=== PATIENT | female | born 1995 | race Caucasian/White ===

== ENCOUNTER 2022-01-15 09:00 | Outpatient (RCR) | payer OTHER, SELFPAY ==
[2021-12-30 10:57] VITALS: BMI 27.4
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
--- NOTE | 2021-12-30 12:41 | PC.ADMIT ---
Verified patient medications with patient and patient's pharmacy. Reports taking Paxil as prescribed however stated she forgets to take occasionally.
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
--- NOTE | 2022-01-01 09:53 | PC.NURSE ---
clients case opened in treatment team
--- NOTE | 2022-01-01 12:28 | PC.NURSE ---
During the weekend planning group the client stated she feels overwhelmed because she doen't have any supports that will be available over the weekend . Due to her history of affect lability and impulsivity we discussed calling [facility] for support which she has done in the past. She agreed to do so and I called and put her on alert. I spoke with Ruchi at [facility] .
--- NOTE | 2022-01-01 13:58 | P.PNPSP_ITS ---
Subjective Subjective Date of Service: 01/01/22 Reason For Visit: depression,anxiety Medical Problems Affecting Mental Status: No Interim History: Reports continued increased anxiety. Poor appetite, sleep, feeling stressed, also some withdrawals after cessation of cannabis. Requests increase of hydroxyzine, possibly another medication to help with sleep and appetite/anxiety. Medication Compliance: Yes Side effects from medications: No Attending Groups: Yes Review of Systems Acute medical concerns: No Medical Review of Systems: unchanged Review of Systems Review of Systems Yes all other systems are reviewed and are negative Constitutional: Reports no additional constitutional complaints Comments: No weight loss, fever, chills, weakness or fatigue. Mental Status Exam Mental Status Exam Narrative: Alert and oriented, fully attentive during encounter. Patient Appearance: Appropriate Patient Orientation: Person, Place, Time and Situation Level of Consciousness: Appropriate Patient Behavior: Appropriate, Anxious and Good Eye Contact Mood Description: Anxious Affect Description: Anxious Patient Cognition Impaired: No Ability to Follow Directions: Good Speech Pattern: Clear, Appropriate and Coherent Memory Description: Intact Hallucinations: None Delusions: Not Present Thought Process: Intact Depressive Symptoms: Increased Anxiety, Difficulty Sleeping, Changes in Appetite, Loss of Int. in Activity, Unhappiness, Increased Fatigue and Thoughts of /Suicide Judgement: Fair Diagnostics Vital Signs (24Hr): BMI result Body Mass Index 27.4 Assessment & Plan Assessment & Plan (1) Bipolar disorder, current episode depressed, mild or moderate severity, unspecified: Status: Acute Code(s): F31.30 - Bipolar disorder, current episode depressed, mild or moderate severity, unspecified Assessment and Plan: Patient reports increased anxiety, poor sleep, poor appetite. Finding hydroxyzine somewhat helpful, request dose increase, as it is not quite strong enough. We also discussed adding another p.r.n. medication. Discussed both BuSpar and Seroquel in detail, including indications, risks both serious and common, benefits, alternatives to treatment. She was agreeable to trial low- dose Seroquel 25 mg b.i.d. p.r.n. at this time. (2) Cannabis dependence, uncomplicated: Status: Acute Code(s): F12.20 - Cannabis dependence, uncomplicated Assessment and Plan: Patient continues to remain abstinent from cannabis use. Reports that she believes this is contributing to her increased anxiety at this time, possibly some withdrawals/cravings. Plan 1. Continue with current [facility] plan of care. 2. Increase hydroxyzine dose to 25-50 mg q.i.d. p.r.n. for anxiety. 3. Add quetiapine 25 mg b.i.d. p.r.n. for anxiety. Patient educated on: diagnosis, medication risk/benefits, substance abuse and therapeutic strategies Informed Consent: understands Reason for contiued partial hosp. stay Substantial Risk for: harm to self, inability to function and rapid decompensation Certification I certify that partial hospital treatment is medically necessary due to the symptoms and problems resulting from the patient's mental illness and the failure to treat the patient at the partial hospital level of care would likely result in the patient requiring inpatient psychiatric care which could not be prevented at a less intensive level of care. I spent minutes with the patient and/or on the patient floor today, greater than?50% of which was spent counseling/coordinating care. Discharge Plan Discharge Attending provider: Salvador Quijano Medications: New clonidine HCl 0.1 mg tablet 0.1 mg PO DAILY PRN (Reason: anxiety) Qty: 7 0RF hydroxyzine pamoate 25 mg capsule 50 mg PO QID PRN (Reason: anxiety) Qty: 112 0RF Rx Instructions: Take 25mg - 50mg up to four times daily prn for anxiety quetiapine 25 mg tablet 25 mg PO BID PRN (Reason: anxiety) 7 Days Qty: 14 0RF Discontinued hydroxyzine pamoate 25 mg Capsule 25 mg PO QID PRN (Reason: Anxiety) Rx Instructions: Patient has not picked up prescription thus has not started. Last filled by pharmacy 12/25/21 for 5 day supply. No Action paroxetine HCl [Paxil] 30 mg Tablet 30 mg PO DAILY Telehealth Telehealth Location of provider rendering services: practice address Location of patient: address on file Patient Identification confirmed using: Name, : Yes Telehealth method: video Patient verbally consented to treatment: Yes Patient verbally consented to billing insurance company: Yes Patient informed of any privacy concerns related to visit: Yes Minutes spent on Phone/Video with Pt.: 15
--- NOTE | 2022-01-05 15:13 | PC.NURSE ---
The client called out this morning because she had to take her car in for repair
--- NOTE | 2022-01-06 13:43 | HO.PHPPROGNO ---
Subjective Subjective Date of Service: 01/06/22 Reason For Visit: depression,anxiety Medical Problems Affecting Mental Status: No Interim History: Reports ongoing anxiety, although finding quetiapine helpful. Passive SI, ?thoughts I want to disappear ?. Denies any intent or plan. States she needs a referral for in neuro psychiatry 2nd opinion, also for a therapist. Medication Compliance: Yes Side effects from medications: No Attending Groups: Yes Review of Systems Acute medical concerns: No Medical Review of Systems: unchanged Review of Systems Review of Systems Yes all other systems are reviewed and are negative Constitutional: Reports no additional constitutional complaints Mental Status Exam Mental Status Exam Narrative: NAD. Fully alert and oriented. circular movements with mouth, motor activity calm, posture within normal limits. Normal ambulation, no cogwheeling or rigidity noted. Patient Appearance: Appropriate Patient Orientation: Person, Place, Time and Situation Level of Consciousness: Appropriate Patient Behavior: Appropriate, Anxious and Good Eye Contact Mood Description: Anxious Affect Description: Anxious Patient Cognition Impaired: No Ability to Follow Directions: Good Speech Pattern: Clear, Appropriate and Coherent Memory Description: Intact Hallucinations: None Delusions: Not Present Thought Process: Intact Thought Content: positive for Suicidal Ideation (Passive, no intent or plan.) Depressive Symptoms: Increased Anxiety, Difficulty Sleeping, Changes in Appetite, Loss of Int. in Activity, Unhappiness, Increased Fatigue and Thoughts of /Suicide Abnormal Motor Activity Signs and Symptoms: Chorea (circular tongue/mouth movements) Judgement: Fair Diagnostics Vital Signs (24Hr): BMI result Body Mass Index 27.4 Assessment & Plan Assessment & Plan (1) Bipolar disorder, current episode depressed, mild or moderate severity, unspecified: Status: Acute Code(s): F31.30 - Bipolar disorder, current episode depressed, mild or moderate severity, unspecified Assessment and Plan: Reports ongoing anxiety, although finding quetiapine helpful. Passive SI, ?thoughts I want to disappear ?. Denies any intent or plan. No safety concern at this time. Patient displaying involuntary movement, circular tongue motion. She reports that this has been ongoing since childhood. She states that she get asks about this every time she has ever taken an atypical antipsychotic, and that it is not TD, but rather something that she has had since she was a child. She states that she has always moved her tongue and would bite it. Patient states she is having difficulty in group, as this subject matter has been intense, and she is finding it difficult at times. She also states that she has difficulty trusting medical surgery nurse, including this technical writer and editor. She also discussed difficulties during childhood, past trauma. We discussed medications in detail. She states that the p.r.n. quetiapine has been helpful, asking for refill. She is also utilizing clonidine, hydroxyzine, with some affect. Continues with daily Paxil. (2) Cannabis dependence, uncomplicated: Status: Acute Code(s): F12.20 - Cannabis dependence, uncomplicated Assessment and Plan: Continues to remain abstinent from cannabis use at this time. No withdrawals/cravings reported. Plan 1. Continue with current [facility] plan of care. 2. Refill sent for quetiapine 25 mg b.i.d. p.r.n., 30 day supply. 3. Continue current medication regimen. 4. Follow-up as per protocol. Patient educated on: diagnosis, medication risk/benefits and therapeutic strategies Informed Consent: understands Reason for contiued partial hosp. stay Substantial Risk for: harm to self, inability to function, rapid decompensation and med/psych decompensation Certification I certify that partial hospital treatment is medically necessary due to the symptoms and problems resulting from the patient's mental illness and the failure to treat the patient at the partial hospital level of care would likely result in the patient requiring inpatient psychiatric care which could not be prevented at a less intensive level of care. I spent minutes with the patient and/or on the patient floor today, greater than?50% of which was spent counseling/coordinating care. Discharge Plan Discharge Attending provider: Salvador Quijano Medications: New clonidine HCl 0.1 mg tablet 0.1 mg PO DAILY PRN (Reason: anxiety) Qty: 7 0RF hydroxyzine pamoate 25 mg capsule 50 mg PO QID PRN (Reason: anxiety) Qty: 112 0RF Rx Instructions: Take 25mg - 50mg up to four times daily prn for anxiety quetiapine 25 mg tablet 25 mg PO BID PRN (Reason: anxiety) Qty: 60 0RF Discontinued hydroxyzine pamoate 25 mg Capsule 25 mg PO QID PRN (Reason: Anxiety) Rx Instructions: Patient has not picked up prescription thus has not started. Last filled by pharmacy 12/25/21 for 5 day supply. No Action paroxetine HCl [Paxil] 30 mg Tablet 30 mg PO DAILY
--- NOTE | 2022-01-12 15:23 | PC.NURSE ---
I faxed a referral for an individual therapist for Aracelis to Isela at [facility]
--- NOTE | 2022-01-15 14:01 | PC.NURSE ---
Discharge Note: Patient discharged on 01/15/2022. Routine discharge. Patient denies SI without plan or intent. Patient denies HI, AH. VH. Patient in agreement with discharge. Patient discharged to outside providers. Patient seen by [facility] prior to discharge for medication appointment. Med teaching done re: discharge medications. Patient states good understanding.
== END 2022-01-15 23:59 | disposition home or self-care (01) ==
LOC: HO.PHPA 09:00
PROVIDERS: Visit Provider Psychiatry & Neurology Psychiatry
DX: F31.30 Bipolar disorder, current episode depressed, mild or moderate severity, unspecified (principal); F12.20 Cannabis dependence, uncomplicated; Z79.899 Other long term (current) drug therapy
CPT/HCPCS: 90791; 90853